=== PATIENT | male | born 1940 | race Caucasian/White ===

== ENCOUNTER → 2019-08-21 11:39 | Outpatient (CLI) | payer MEDICARE ==
[2014-10-25 20:08] VITALS: BMI 29.5
[~2019-08-21 11:39] MED LIST: CELEBREX200 MG PO; HYDROCHLOROTHIA25 MG PO; LIPITOR40 MG PO; PLAVIX75 MG PO; PRINIVIL10 MG PO; SYNTHROID25 MCG PO
== END | disposition home or self-care (01) ==
LOC: D.CT 11:30
PROVIDERS: ATTEND Clinical Nurse Specialist Family Health
DX: S29.9XXA Unspecified injury of thorax, initial encounter (principal)